=== PATIENT | female | born 1945 | race Caucasian/White ===

== ENCOUNTER 2018-08-14 10:59 | Outpatient (CLI) | payer MEDICARE, MEDICAID ==
[2018-08-14 12:55] LABS: PTT 36.1 SEC (22.9-36.1); Prothrombin Time 13.7 SEC (12.0-14.7)
[2018-08-14 13:02] LABS: #Eosinphils 0.3 thou/uL (0.0-0.7); #Lymphocytes 1.1 thou/uL (1.20-3.40); #Monocytes 0.9 thou/uL (0.11-0.59); #Neutrophils 9.9 thou/uL (1.40-6.50); %Basophils 0.4 % (0.0-1.0); %Eosinophils 2.4 % (0.0-10.0); %Lymphocytes 8.6 % (21.0-51.0); %Neutrophils 81.7 % (42.0-75.0); Hemoglobin 9.8 g/dL (12.0-16.0); MDiff Complete? YES; Mean Corpuscular HGB CONC 29.9 g/dL (32.0-36.0); Mean Corpuscular Hemoglobin 20.8 pg (27.0-31.0); Mean Corpuscular Volume 69.7 fL (78.0-98.0); Mean Platelet Volume 6.2 fL (7.4-10.4); Microcytosis MODERATE=15-30 cells (100X) (0-5/hpf); PLT Morphology Comment Appears Adequate; Platelet Count 269 thou/uL (130-400); Polychromasia SLIGHT = 2-3 cells (100X) (0-2/hpf); RBC Distribution Width 20.4 % (11.5-14.5); White Blood Cell (WBC) Count 12.2 thou/uL (4.8-10.8)
[2018-08-14 13:15] LABS: ALT (SGPT) 12 U/L (8-55); AST (SGOT) 13 U/L (5-34); Albumin 3.7 g/dL (3.4-4.8); Alkaline Phosphatase 116 U/L (40-150); Anion Gap 12 mmol/L (10-20); BUN (Urea Nitrogen) 53 mg/dL (9.8-20.1); Bilirubin, Total 0.4 mg/dL (0.2-1.2); Calc. Creatinine Clearance 0 mL/min (70-130); Calcium 9.9 mg/dL (7.8-10.44); Carbon Dioxide 26 mmol/L (23-31); Chloride 106 mmol/L (98-107); Estimated GFR-MDRD 35; Globulin 3.7 g/dL (2.4-3.5); Glucose 77 mg/dL (80-115); Protein, Total 7.4 g/dL (6.0-8.3); Sodium 139 mmol/L (136-145)
== END 2018-08-14 11:00 | disposition home or self-care (01) ==
LOC: LABBT 10:59
PROVIDERS: ATTEND Family Medicine
CPT/HCPCS: 80053; 85025; 85610; 85730

== ENCOUNTER 2018-08-15 06:03 | Day surgery (SDC) | payer MEDICARE, MEDICAID ==
[2018-08-14 11:22] VITALS: BMI 46.5
[2018-08-15] MEDS ORDERED: Diazepam 5 MG TAB ONE (06:34)
[2018-08-15] MEDS ORDERED: Lidocaine 1% (PF) 30 ML VIAL ONE (07:33)
[2018-08-15] MEDS ORDERED: Heparin 10,000 UNITS/1 ML VIAL ONE (07:33)
[2018-08-15] MEDS ORDERED: Midazolam HCl 2 mg/2 ml Vial ONE (07:34)
[2018-08-15] MEDS ORDERED: Verapamil 5 MG/2 ML VIAL ONE (07:34)
[2018-08-15] MEDS ORDERED: Fentanyl 100 MCG/2 ML VIAL ONE (07:34)
[2018-08-15] MEDS ORDERED: Nitroglycerin 100MG/250ML BOT 250 ML ONE (07:34)
[2018-08-15] MEDS ORDERED: Iopamidol 370 76% 100 ML VIAL ONE (15:11)
== END 2018-08-15 11:27 | disposition home or self-care (01) ==
LOC: CCL 06:03
PROVIDERS: ATTEND Internal Medicine Cardiovascular Disease
PROC: 4A023N7 Measurement of Cardiac Sampling and Pressure, Left Heart, Percutaneous Approach (ICD-10-PCS; principal; 2018-08-15)
PROC: B2111ZZ Fluoroscopy of Multiple Coronary Arteries using Low Osmolar Contrast (ICD-10-PCS; 2018-08-15)
DX: R94.39 Abnormal result of other cardiovascular function study (principal); R06.02 Shortness of breath; E11.9 Type 2 diabetes mellitus without complications; E78.5 Hyperlipidemia, unspecified; D64.9 Anemia, unspecified; I11.0 Hypertensive heart disease with heart failure; I50.32 Chronic diastolic (congestive) heart failure; E78.00 Pure hypercholesterolemia, unspecified; E66.01 Morbid (severe) obesity due to excess calories; Z68.42 Body mass index [BMI] 45.0-49.9, adult; Z79.4 Long term (current) use of insulin; Z79.899 Other long term (current) drug therapy; Z88.5 Allergy status to narcotic agent
CPT/HCPCS: 93458; C1769; C1887; 99152; 99153; J1644; J2001; J2250; J3010

== ENCOUNTER 2018-12-30 10:22 | Outpatient (CLI) | payer MEDICARE, MEDICAID ==
--- NOTE | 2018-12-30 12:05 | ULT ---
BILATERAL RENAL ULTRASOUND: Date: 12/30/18 PROVIDED CLINICAL HISTORY: Chronic kidney disease. FINDINGS: Right kidney measures about 10.2 x 5.6 x 5.7 cm, and demonstrates no evidence for hydronephrosis or m ass. Left kidney measures about 10.5 x 5.6 x 5.4 cm, and demonstrates no evidence for hydronephrosis. Circ umscribed foci of diminished echogenicity are seen involving the superior pole of the left kidney sarahy suring about 1.3 cm and 2.1 cm maximally. These statistically reflect cysts, though are incompletely anechoic, possibly on the basis of technical factors. The urinary bladder appears sonographically unremarkable. IMPRESSION: 1. No evidence for hydronephrosis. 2. Circumscribed foci of diminished echogenicity involving the left kidney, likely reflect cysts, bu t are not definitively characterized on the basis of this study. Consider CT characterization versus sonographic follow-up. POS: [facility]
== END 2018-12-30 10:23 | disposition home or self-care (01) ==
LOC: BICULT 10:22
PROVIDERS: ATTEND Internal Medicine Nephrology
DX: N18.3 Chronic kidney disease, stage 3 (moderate) (principal); R93.422 Abnormal radiologic findings on diagnostic imaging of left kidney
CPT/HCPCS: 76770

== ENCOUNTER 2022-11-27 22:39 | Inpatient (IN) | payer OTHER, MEDICAID ==
[~2022-11-27 22:39] MED LIST: Iopamidol-370 76% 500 ML 1 ML ONE
[2022-11-27] MEDS ORDERED: Aspirin 325 MG TAB ONE (23:49)
[2022-11-27 23:59] LABS: Actual Bicarbonate (HCO3v) 30 mEq/L (22-28); Base Excess 2.2 mEq/L (-2.0 to +3.0); Calcium, Ionized (venous) 1.11 mmol/L (1.16-1.32); Chloride (VBG) 98 mmol/L (98-106); Hemoglobin (Hb) 11.8 g/dL (11.7-16.1); Potassium (VBG) 4.66 mmol/L (3.70-5.30); pH (venous) 7.31 (7.32-7.43)
[2022-11-28 00:44] LABS: CKMB 3.4 ng/mL (0-6.6)
[2022-11-28] MEDS ORDERED: Ipratropium/Albuterol 3 ML NEB NEB PRN (01:20)
[2022-11-28] MEDS ORDERED: Acetaminophen 650 MG Suppository PR PRN (01:21)
[2022-11-28] MEDS ORDERED: Ondansetron PF 4 MG/2 ML Vial IVP PRN (01:21)
[2022-11-28] MEDS ORDERED: Ondansetron ODT 4 MG TAB PO PRN (01:21)
[2022-11-28] MEDS ORDERED: Dextrose 5% in Water 1,000 ML IV PRN (01:26)
[2022-11-28] MEDS ORDERED: Dextrose 50% Abboject 50 ML SYRINGE SLOW IVP PRN (01:26)
[2022-11-28] MEDS ORDERED: Acetaminophen 500 MG TAB ONE (01:36)
[2022-11-28 01:47] LABS: Base Excess (BEa) 2.3 mEq/L (-2.0 to +3.0); CO2 Tension 55.2 mmHg (35.0-45.0); Carboxyhemoglobin (COHb) 0.8 gm% (0.0-3.0); Hemoglobin (Hb) 11.5 g/dL (12.0-16.0); O2 Tension (PaO2), arterial 84.7 mmHg (> 70.0); Potassium - ABG Lab 4.58 mmol/L (3.70-5.30); pH, Arterial 7.34 (7.35-7.45)
[2022-11-28 02:38] LABS: #Lymphocytes 0.7 thou/uL (1.20-3.40); #Monocytes 1.5 thou/uL (0.11-0.59); #Neutrophils 11.4 thou/uL (1.40-6.50); %Basophils 0.1 % (0.0-1.0); %Eosinophils 0.1 % (0.0-10.0); %Monocytes 10.8 % (0.0-10.0); Hemoglobin 10.3 g/dL (12.0-16.0); Mean Corpuscular HGB CONC 30.9 g/dL (32.0-36.0); Mean Corpuscular Volume 77.5 fl (78.0-98.0); Mean Platelet Volume 9.1 fL (7.4-10.4); Platelet Count 224 10x3/uL (130-400); RBC Distribution Width 16.9 % (11.5-14.5); Red Blood Cell (RBC) Count 4.29 mill/uL (4.20-5.40); White Blood Cell (WBC) Count 13.6 10x3/uL (4.8-10.8)
[2022-11-28 03:01] LABS: SARS-CoV-2 NAA Rapid Test Not Detected (NotDetected)
[2022-11-28] MEDS ORDERED: methylPREDNISolone Sod Succ/PF 125 MG/2 ML VIAL IVP SCH (03:09)
[2022-11-28 03:38] LABS: Troponin I 0.489 ng/mL (< 0.028)
[2022-11-28 03:46] VITALS: BMI 44.1
[2022-11-28 04:17] LABS: Anion Gap 19 mmol/L (10-20); BUN (Urea Nitrogen) 37 mg/dL (9.8-20.1); Calc. Creatinine Clearance 60 mL/min (70-130); Calcium 8.8 mg/dL (7.8-10.44); Carbon Dioxide 24 mmol/L (23-31); Chloride 100 mmol/L (98-107); Estimated GFR 34; Glucose 283 mg/dL (83-110); Potassium 4.5 mmol/L (3.5-5.1); Sodium 138 mmol/L (136-145)
[2022-11-28 04:35] LABS: Magnesium 2.3 mg/dL (1.6-2.6)
[2022-11-28] MEDS: Doxycycline 100 MG in Sodium Chloride 0.9% 100 ML IVPB SCH ×2 (04:35→16:39)
[2022-11-28] MEDS: Cefepime 2 GM in Sodium Chloride 0.9% 100 ML IVPB SCH ×2 (05:45→16:39)
[2022-11-28 06:33] LABS: Critical Call Chem Troponin I RESULT DECREASING; Troponin I 0.432 ng/mL (< 0.028)
[2022-11-28] MEDS: Ipratropium/Albuterol 3 ML NEB NEB SCH ×6 (06:55→21:56)
[2022-11-28] MEDS ORDERED: Furosemide 40 MG/4 ML VIAL SLOW IVP SCH (09:00)
[2022-11-28 09:33] LABS: Anion Gap 17 mmol/L (10-20); BUN (Urea Nitrogen) 37 mg/dL (9.8-20.1); Calc. Creatinine Clearance 62 mL/min (70-130); Calcium 9.2 mg/dL (7.8-10.44); Carbon Dioxide 25 mmol/L (23-31); Chloride 102 mmol/L (98-107); Estimated GFR 35; Glucose 231 mg/dL (83-110); Potassium 5.1 mmol/L (3.5-5.1); Sodium 139 mmol/L (136-145)
[2022-11-28] MEDS: Lactated Ringer's 1,000 ML IV SCH ×2 (11:07→23:48)
[2022-11-28] MEDS: HumaLOG 300 UNITS/3 ML VIAL SC PRN ×3 (11:37→21:12)
[2022-11-28] MEDS ORDERED: cefTRIAXone\\ROCEPHIN 1 GM in Sodium Chloride 0.9% 100 ML IVPB SCH (18:00)
[2022-11-28] MEDS: Acetaminophen 325 MG TAB PO PRN (18:08)
[2022-11-29] MEDS: Ipratropium/Albuterol 3 ML NEB NEB SCH ×6 (02:19→21:58)
[2022-11-29] MEDS: Doxycycline 100 MG in Sodium Chloride 0.9% 100 ML IVPB SCH ×2 (03:54→15:48)
[2022-11-29 04:22] LABS: Hemoglobin 9.8 g/dL (12.0-16.0); Mean Corpuscular HGB CONC 30.1 g/dL (32.0-36.0); Mean Corpuscular Hemoglobin 23.4 pg (27.0-31.0); Mean Corpuscular Volume 77.6 fl (78.0-98.0); Platelet Count 177 10x3/uL (130-400); RBC Distribution Width 16.7 % (11.5-14.5); Red Blood Cell (RBC) Count 4.18 mill/uL (4.20-5.40); White Blood Cell (WBC) Count 13.5 10x3/uL (4.8-10.8)
[2022-11-29 04:45] LABS: ALT (SGPT) 15 U/L (8-55); AST (SGOT) 14 U/L (5-34); Alkaline Phosphatase 137 U/L (40-110); Anion Gap 15 mmol/L (10-20); BUN (Urea Nitrogen) 48 mg/dL (9.8-20.1); Bilirubin, Total 0.4 mg/dL (0.2-1.2); Calc. Creatinine Clearance 61 mL/min (70-130); Calcium 8.7 mg/dL (7.8-10.44); Carbon Dioxide 25 mmol/L (23-31); Chloride 96 mmol/L (98-107); Estimated GFR 34; Globulin 3.7 g/dL (2.4-3.5); Glucose 314 mg/dL (83-110); Potassium 4.4 mmol/L (3.5-5.1); Protein, Total 6.7 g/dL (5.8-8.1); Sodium 132 mmol/L (136-145)
[2022-11-29 05:13] LABS: Anisocytosis SLIGHT = 6-15 cells (100X) (0-5/hpf); Band 2 % (5-11); Hypochromia SLIGHT = 6-15 cells (100X) (0-5/hpf); Lymphocytes 6 % (21-51); MDiff Complete? YES; Metamyelocyte 1 % (0-0); Monocytes 4 % (0-10); Neutrophil 87 % (42-75); Platelet Morphology Comment Appears Adequate; Polychromasia SLIGHT = 2-3 cells (100X) (0-2/hpf)
[2022-11-29] MEDS: Cefepime 2 GM in Sodium Chloride 0.9% 100 ML IVPB SCH ×2 (05:38→17:23)
[2022-11-29] MEDS: Saccharomyces boulardii 250 MG CAP PO SCH (08:28)
[2022-11-29] MEDS: methylPREDNISolone Sod Succ 40 MG VIAL IVP SCH (08:28)
[2022-11-29] MEDS: HumaLOG 300 UNITS/3 ML VIAL SC PRN ×3 (11:47→20:36)
[2022-11-29] MEDS: Acetaminophen 325 MG TAB PO PRN ×2 (11:54→21:59)
[2022-11-29] MEDS ORDERED: Furosemide 20 MG/2 ML VIAL SLOW IVP SCH (14:30)
[2022-11-29] MEDS ORDERED: Potassium Chloride 20 MEQ TAB PO SCH (17:00)
[2022-11-30] MEDS: Ipratropium/Albuterol 3 ML NEB NEB SCH ×6 (03:17→22:25)
[2022-11-30 03:48] LABS: #Lymphocytes 1.2 thou/uL (1.20-3.40); #Monocytes 1.1 thou/uL (0.11-0.59); #Neutrophils 12.6 thou/uL (1.40-6.50); %Basophils 0.1 % (0.0-1.0); %Eosinophils 0.1 % (0.0-10.0); %Lymphocytes 7.8 % (21.0-51.0); %Monocytes 7.2 % (0.0-10.0); %Neutrophils 84.7 % (42.0-75.0); Hemoglobin 9.8 g/dL (12.0-16.0); Mean Corpuscular HGB CONC 30.6 g/dL (32.0-36.0); Mean Corpuscular Hemoglobin 23.8 pg (27.0-31.0); Mean Platelet Volume 9.9 fL (7.4-10.4); Platelet Count 214 10x3/uL (130-400); RBC Distribution Width 16.6 % (11.5-14.5); Red Blood Cell (RBC) Count 4.11 mill/uL (4.20-5.40); White Blood Cell (WBC) Count 14.8 10x3/uL (4.8-10.8)
[2022-11-30] MEDS: Doxycycline 100 MG in Sodium Chloride 0.9% 100 ML IVPB SCH (04:03)
[2022-11-30 04:09] LABS: Anion Gap 13 mmol/L (10-20); BUN (Urea Nitrogen) 52 mg/dL (9.8-20.1); Calc. Creatinine Clearance 63 mL/min (70-130); Calcium 8.7 mg/dL (7.8-10.44); Carbon Dioxide 27 mmol/L (23-31); Chloride 98 mmol/L (98-107); Estimated GFR 36; Glucose 304 mg/dL (83-110); Potassium 4.7 mmol/L (3.5-5.1); Sodium 133 mmol/L (136-145)
[2022-11-30] MEDS: HumaLOG 300 UNITS/3 ML VIAL SC PRN ×3 (06:37→21:44)
[2022-11-30] MEDS: Cefepime 2 GM in Sodium Chloride 0.9% 100 ML IVPB SCH (06:43)
[2022-11-30] MEDS: methylPREDNISolone Sod Succ 40 MG VIAL IVP SCH (08:39)
[2022-11-30] MEDS: Multivit, Therapeutic 1 TAB PO SCH (08:39)
[2022-11-30] MEDS: Saccharomyces boulardii 250 MG CAP PO SCH (08:39)
[2022-11-30] MEDS: Cefdinir 300 MG CAP PO SCH (08:43)
[2022-11-30] MEDS: Doxycycline 100 MG CAP PO SCH ×2 (08:43→21:36)
[2022-11-30] MEDS ORDERED: Polyethylene Glycol 3350 17 GM Packet PO PRN (09:53)
[2022-11-30] MEDS ORDERED: Polyethylene Glycol 3350 17 GM Packet PO SCH (11:00)
[2022-11-30] MEDS ORDERED: HumaLOG 300 UNITS/3 ML VIAL SC PRN (12:20)
[2022-11-30] MEDS ORDERED: Insulin Glargine 30 UNITS/0.3 ML VIAL SC SCH (12:30)
[2022-11-30] MEDS: Insulin Glargine 30 UNITS/0.3 ML VIAL SC SCH (21:35)
[2022-11-30] MEDS: Senokot S 8.6-50 MG TAB PO SCH ×2 (21:36→21:38)
[2022-12-01] MEDS: Acetaminophen 325 MG TAB PO PRN ×2 (01:29→23:28)
[2022-12-01 01:31] LABS: #Eosinphils 0.1 thou/uL (0.0-0.7); #Lymphocytes 1.5 thou/uL (1.20-3.40); #Monocytes 1.2 thou/uL (0.11-0.59); #Neutrophils 12.9 thou/uL (1.40-6.50); %Eosinophils 0.4 % (0.0-10.0); %Lymphocytes 9.5 % (21.0-51.0); %Monocytes 7.9 % (0.0-10.0); %Neutrophils 82.2 % (42.0-75.0); Hemoglobin 10.3 g/dL (12.0-16.0); Mean Corpuscular HGB CONC 30.8 g/dL (32.0-36.0); Mean Corpuscular Hemoglobin 23.8 pg (27.0-31.0); Mean Corpuscular Volume 77.1 fl (78.0-98.0); Mean Platelet Volume 9.9 fL (7.4-10.4); Platelet Count 222 10x3/uL (130-400); RBC Distribution Width 16.9 % (11.5-14.5); Red Blood Cell (RBC) Count 4.33 mill/uL (4.20-5.40); White Blood Cell (WBC) Count 15.7 10x3/uL (4.8-10.8)
[2022-12-01] MEDS: Ipratropium/Albuterol 3 ML NEB NEB SCH ×6 (01:46→21:50)
[2022-12-01 02:34] LABS: Calcium 9.1 mg/dL (7.8-10.44); Chloride 102 mmol/L (98-107); Potassium 4.9 mmol/L (3.5-5.1); Sodium 138 mmol/L (136-145)
[2022-12-01 02:35] LABS: Glucose 216 mg/dL (83-110)
[2022-12-01 02:36] LABS: Anion Gap 11 mmol/L (10-20); Carbon Dioxide 30 mmol/L (23-31)
[2022-12-01 02:38] LABS: Calc. Creatinine Clearance 71 mL/min (70-130); Estimated GFR 41
[2022-12-01 02:39] LABS: BUN (Urea Nitrogen) 47 mg/dL (9.8-20.1)
[2022-12-01 02:40] LABS: Magnesium 2.7 mg/dL (1.6-2.6)
[2022-12-01] MEDS ORDERED: Ipratropium/Albuterol 3 ML NEB ONE (03:38)
[2022-12-01 03:58] LABS: Bacteria/HPF None Seen HPF (None Seen); Bilirubin Negative (Negative); Blood, Urine 3+ (Negative); CAUTI Indications for Culture Fever or rigors; Clarity Clear (Clear); Glucose, Urine (Dipstick) Greater than 1000 mg/dL (Negative); Ketone, Urine Negative (Negative); Leukocyte Negative Leu/uL (Negative); Nitrite Negative (Negative); Protein, Urine (Dipstick) 30 mg/dL (Neg-Trace); RBC/HPF Greater than 50 HPF (0-3); Specific Gravity, Urine 1.019 (1.002-1.036); Squamous Epithelial 0-3 HPF (0-3); Urobilinogen Normal mg/dL (Less than 2); pH, Urine 5.5 (5.0-9.0)
[2022-12-01 04:00] LABS: Urine Culture Reflex No No
[2022-12-01] MEDS: Cefdinir 300 MG CAP PO SCH (08:09)
[2022-12-01] MEDS: Insulin Glargine 30 UNITS/0.3 ML VIAL SC SCH ×2 (08:10→20:59)
[2022-12-01] MEDS: Doxycycline 100 MG CAP PO SCH ×2 (08:10→20:59)
[2022-12-01] MEDS: Multivit, Therapeutic 1 TAB PO SCH (08:10)
[2022-12-01] MEDS: predniSONE 20 MG TAB PO SCH (08:10)
[2022-12-01] MEDS: Saccharomyces boulardii 250 MG CAP PO SCH (08:10)
[2022-12-01] MEDS: Senokot S 8.6-50 MG TAB PO SCH ×2 (08:12→21:00)
[2022-12-01 08:15] LABS: Troponin I 0.139 ng/mL (< 0.028)
[2022-12-01] MEDS ORDERED: Insulin Glargine 30 UNITS/0.3 ML VIAL SC SCH (09:00)
[2022-12-01] MEDS: HumaLOG 300 UNITS/3 ML VIAL SC PRN ×3 (12:53→21:05)
[2022-12-02] MEDS: Ipratropium/Albuterol 3 ML NEB NEB SCH ×6 (02:57→22:24)
[2022-12-02] MEDS ORDERED: Ipratropium/Albuterol 3 ML NEB ONE (04:21)
[2022-12-02] MEDS ORDERED: Insulin Glargine 30 UNITS/0.3 ML VIAL SC SCH ×2 (09:00→12:00)
[2022-12-02] MEDS ORDERED: Polyethylene Glycol 3350 17 GM Packet PO SCH (09:15)
[2022-12-02] MEDS: Multivit, Therapeutic 1 TAB PO SCH (09:49)
[2022-12-02] MEDS: Senokot S 8.6-50 MG TAB PO SCH ×2 (09:49→21:42)
[2022-12-02] MEDS: Cefdinir 300 MG CAP PO SCH (09:49)
[2022-12-02] MEDS: Doxycycline 100 MG CAP PO SCH ×2 (09:49→21:41)
[2022-12-02] MEDS: predniSONE 20 MG TAB PO SCH (09:49)
[2022-12-02] MEDS: Saccharomyces boulardii 250 MG CAP PO SCH (09:49)
[2022-12-02] MEDS: Insulin Glargine 30 UNITS/0.3 ML VIAL SC SCH ×2 (11:08→21:42)
[2022-12-02 11:43] LABS: Anion Gap 12 mmol/L (10-20); BUN (Urea Nitrogen) 34 mg/dL (9.8-20.1); Calc. Creatinine Clearance 76 mL/min (70-130); Calcium 9.1 mg/dL (7.8-10.44); Carbon Dioxide 28 mmol/L (23-31); Chloride 99 mmol/L (98-107); Estimated GFR 45; Potassium 4.7 mmol/L (3.5-5.1); Sodium 134 mmol/L (136-145)
[2022-12-02 11:50] LABS: Glucose 426 mg/dL (83-110)
[2022-12-02] MEDS: HumaLOG 300 UNITS/3 ML VIAL SC PRN ×2 (12:56→16:29)
[2022-12-02] MEDS ORDERED: cloNIDine 0.1 MG TAB PO PRN (16:33)
[2022-12-02] MEDS ORDERED: guaiFENesin ER 600 MG TAB PO SCH (16:45)
[2022-12-02] MEDS: guaiFENesin ER 600 MG TAB PO SCH (21:42)
[2022-12-03] MEDS: Ipratropium/Albuterol 3 ML NEB NEB SCH ×6 (01:55→23:01)
[2022-12-03] MEDS: Acetaminophen 325 MG TAB PO PRN (02:11)
[2022-12-03 05:16] LABS: Anion Gap 11 mmol/L (10-20); BUN (Urea Nitrogen) 33 mg/dL (9.8-20.1); Calc. Creatinine Clearance 89 mL/min (70-130); Calcium 8.9 mg/dL (7.8-10.44); Carbon Dioxide 29 mmol/L (23-31); Chloride 99 mmol/L (98-107); Estimated GFR 55; Glucose 203 mg/dL (83-110); Potassium 4.4 mmol/L (3.5-5.1); Sodium 135 mmol/L (136-145)
[2022-12-03] MEDS: HumaLOG 300 UNITS/3 ML VIAL SC PRN ×3 (05:38→17:24)
[2022-12-03 05:46] LABS: Eosinophils 1 % (0-10); Hemoglobin 10.2 g/dL (12.0-16.0); Hypochromia SLIGHT = 6-15 cells (100X) (0-5/hpf); Lymphocytes 23 % (21-51); MDiff Complete? YES; Mean Corpuscular HGB CONC 31.7 g/dL (32.0-36.0); Mean Corpuscular Hemoglobin 24.7 pg (27.0-31.0); Mean Corpuscular Volume 78.1 fl (78.0-98.0); Mean Platelet Volume 8.9 fL (7.4-10.4); Monocytes 3 % (0-10); Neutrophil 72 % (42-75); Platelet Count 224 10x3/uL (130-400); Platelet Morphology Comment Appears Adequate; RBC Distribution Width 17.3 % (11.5-14.5); Reactive Lymphocytes 1 % (0-10); Red Blood Cell (RBC) Count 4.12 mill/uL (4.20-5.40); White Blood Cell (WBC) Count 14.9 10x3/uL (4.8-10.8)
[2022-12-03] MEDS: Multivit, Therapeutic 1 TAB PO SCH (08:53)
[2022-12-03] MEDS: predniSONE 20 MG TAB PO SCH (08:53)
[2022-12-03] MEDS: Cefdinir 300 MG CAP PO SCH (08:53)
[2022-12-03] MEDS: Insulin Glargine 30 UNITS/0.3 ML VIAL SC SCH ×2 (08:54→21:01)
[2022-12-03] MEDS: guaiFENesin ER 600 MG TAB PO SCH ×2 (08:54→21:01)
[2022-12-03] MEDS: Saccharomyces boulardii 250 MG CAP PO SCH (08:54)
[2022-12-03] MEDS: Doxycycline 100 MG CAP PO SCH ×2 (08:54→21:01)
[2022-12-03] MEDS: Senokot S 8.6-50 MG TAB PO SCH ×2 (08:55→21:01)
[2022-12-04] MEDS: Ipratropium/Albuterol 3 ML NEB NEB SCH ×6 (01:56→21:45)
[2022-12-04] MEDS: guaiFENesin ER 600 MG TAB PO SCH ×2 (09:27→20:04)
[2022-12-04] MEDS: Insulin Glargine 30 UNITS/0.3 ML VIAL SC SCH ×2 (09:27→20:04)
[2022-12-04] MEDS: Cefdinir 300 MG CAP PO SCH (09:27)
[2022-12-04] MEDS: Saccharomyces boulardii 250 MG CAP PO SCH (09:27)
[2022-12-04] MEDS: Multivit, Therapeutic 1 TAB PO SCH (09:28)
[2022-12-04] MEDS: Doxycycline 100 MG CAP PO SCH ×2 (09:28→20:04)
[2022-12-04] MEDS: Senokot S 8.6-50 MG TAB PO SCH ×2 (09:28→20:11)
[2022-12-04] MEDS: predniSONE 20 MG TAB PO SCH (09:28)
[2022-12-04] MEDS: HumaLOG 300 UNITS/3 ML VIAL SC PRN ×3 (12:14→20:05)
[2022-12-04] MEDS: Acetaminophen 325 MG TAB PO PRN (20:09)
[2022-12-05] MEDS: Ipratropium/Albuterol 3 ML NEB NEB SCH ×6 (00:53→22:15)
[2022-12-05] MEDS: Acetaminophen 325 MG TAB PO PRN (01:32)
[2022-12-05 05:34] LABS: Anion Gap 12 mmol/L (10-20); BUN (Urea Nitrogen) 29 mg/dL (9.8-20.1); Calc. Creatinine Clearance 91 mL/min (70-130); Calcium 8.9 mg/dL (7.8-10.44); Carbon Dioxide 28 mmol/L (23-31); Chloride 103 mmol/L (98-107); Estimated GFR 59; Glucose 150 mg/dL (83-110); Potassium 4.5 mmol/L (3.5-5.1); Sodium 138 mmol/L (136-145)
[2022-12-05 06:23] LABS: Band 2 % (5-11); Hemoglobin 10.1 g/dL (12.0-16.0); Hypochromia SLIGHT = 6-15 cells (100X) (0-5/hpf); Lymphocytes 32 % (21-51); MDiff Complete? YES; Mean Corpuscular HGB CONC 30.7 g/dL (32.0-36.0); Mean Corpuscular Volume 78.1 fl (78.0-98.0); Mean Platelet Volume 9.7 fL (7.4-10.4); Monocytes 5 % (0-10); Neutrophil 60 % (42-75); Platelet Count 222 10x3/uL (130-400); Platelet Morphology Comment Appears Adequate; RBC Distribution Width 17.3 % (11.5-14.5); Reactive Lymphocytes 1 % (0-10); Red Blood Cell (RBC) Count 4.22 mill/uL (4.20-5.40); White Blood Cell (WBC) Count 13.7 10x3/uL (4.8-10.8)
[2022-12-05] MEDS: Insulin Glargine 30 UNITS/0.3 ML VIAL SC SCH ×2 (09:09→19:43)
[2022-12-05] MEDS: Cefdinir 300 MG CAP PO SCH (09:10)
[2022-12-05] MEDS: Doxycycline 100 MG CAP PO SCH ×2 (09:10→19:43)
[2022-12-05] MEDS: guaiFENesin ER 600 MG TAB PO SCH ×2 (09:10→19:43)
[2022-12-05] MEDS: predniSONE 20 MG TAB PO SCH (09:10)
[2022-12-05] MEDS: Saccharomyces boulardii 250 MG CAP PO SCH (09:10)
[2022-12-05] MEDS: Multivit, Therapeutic 1 TAB PO SCH (09:10)
[2022-12-05] MEDS: Senokot S 8.6-50 MG TAB PO SCH ×2 (09:11→21:42)
[2022-12-05] MEDS: HumaLOG 300 UNITS/3 ML VIAL SC PRN ×2 (18:07→19:47)
[2022-12-06] MEDS: Ipratropium/Albuterol 3 ML NEB NEB SCH ×6 (00:08→23:18)
[2022-12-06] MEDS: Acetaminophen 325 MG TAB PO PRN ×2 (04:55→20:45)
[2022-12-06] MEDS: Doxycycline 100 MG CAP PO SCH (09:55)
[2022-12-06] MEDS: Insulin Glargine 30 UNITS/0.3 ML VIAL SC SCH ×2 (09:55→20:43)
[2022-12-06] MEDS: guaiFENesin ER 600 MG TAB PO SCH ×2 (09:56→20:42)
[2022-12-06] MEDS: Saccharomyces boulardii 250 MG CAP PO SCH (09:56)
[2022-12-06] MEDS: Senokot S 8.6-50 MG TAB PO SCH ×2 (09:56→20:57)
[2022-12-06] MEDS: Cefdinir 300 MG CAP PO SCH (09:56)
[2022-12-06] MEDS: predniSONE 5 MG TAB PO SCH (09:56)
[2022-12-06] MEDS: Multivit, Therapeutic 1 TAB PO SCH (09:57)
[2022-12-06] MEDS: HumaLOG 300 UNITS/3 ML VIAL SC PRN (17:46)
[2022-12-07] MEDS: Ipratropium/Albuterol 3 ML NEB NEB SCH ×5 (03:00→19:06)
[2022-12-07 07:19] LABS: #Eosinphils 0.3 thou/uL (0.0-0.7); #Lymphocytes 1.7 thou/uL (1.20-3.40); #Monocytes 0.8 thou/uL (0.11-0.59); #Neutrophils 9.5 thou/uL (1.40-6.50); %Basophils 0.1 % (0.0-1.0); %Eosinophils 2.3 % (0.0-10.0); %Monocytes 6.6 % (0.0-10.0); Mean Corpuscular HGB CONC 31.1 g/dL (32.0-36.0); Mean Corpuscular Hemoglobin 24.5 pg (27.0-31.0); Mean Corpuscular Volume 78.6 fl (78.0-98.0); Mean Platelet Volume 9.7 fL (7.4-10.4); Platelet Count 212 10x3/uL (130-400); RBC Distribution Width 17.7 % (11.5-14.5); Red Blood Cell (RBC) Count 4.51 mill/uL (4.20-5.40); White Blood Cell (WBC) Count 12.3 10x3/uL (4.8-10.8)
[2022-12-07 07:36] LABS: Anion Gap 13 mmol/L (10-20); BUN (Urea Nitrogen) 29 mg/dL (9.8-20.1); Calc. Creatinine Clearance 82 mL/min (70-130); Calcium 9.7 mg/dL (7.8-10.44); Carbon Dioxide 27 mmol/L (23-31); Chloride 101 mmol/L (98-107); Estimated GFR 52; Glucose 87 mg/dL (83-110); Sodium 136 mmol/L (136-145)
[2022-12-07] MEDS: Senokot S 8.6-50 MG TAB PO SCH (08:35)
[2022-12-07] MEDS: Multivit, Therapeutic 1 TAB PO SCH (08:36)
[2022-12-07] MEDS: predniSONE 5 MG TAB PO SCH (08:36)
[2022-12-07] MEDS: guaiFENesin ER 600 MG TAB PO SCH (08:36)
[2022-12-07] MEDS: Saccharomyces boulardii 250 MG CAP PO SCH (08:36)
[2022-12-07] MEDS: Insulin Glargine 30 UNITS/0.3 ML VIAL SC SCH (08:36)
[2022-12-07] MEDS: HumaLOG 300 UNITS/3 ML VIAL SC PRN ×2 (13:35→16:55)
[2022-12-07 16:51] VITALS: BP 156/61; TEMP 98.2
== END 2022-12-07 19:02 | disposition home or self-care (01) | DRG 871 ==
LOC: ERS 22:39 → IMCU/EMU 11-28 01:28 → 2NO 12-01 19:30 → T4-B 12-06 19:41
PROVIDERS: ADMIT Student in an Organized Health Care Education/Training Program; ATTEND Internal Medicine
PROC: 5A09357 Assistance with Respiratory Ventilation, Less than 24 Consecutive Hours, Continuous Positive Airway Pressure (ICD-10-PCS; principal; 2022-11-28)
PROC: 3E03329 Introduction of Other Anti-infective into Peripheral Vein, Percutaneous Approach (ICD-10-PCS; 2022-11-28)
DX: A41.9 Sepsis, unspecified organism (principal); I21.A1 Myocardial infarction type 2; J96.01 Acute respiratory failure with hypoxia; J18.9 Pneumonia, unspecified organism; J96.02 Acute respiratory failure with hypercapnia; I50.33 Acute on chronic diastolic (congestive) heart failure; I13.0 Hypertensive heart and chronic kidney disease with heart failure and stage 1 through stage 4 chronic kidney disease, or unspecified chronic kidney disease; Z68.41 Body mass index [BMI] 40.0-44.9, adult; I47.20 Ventricular tachycardia, unspecified; G93.40 Encephalopathy, unspecified; R65.20 Severe sepsis without septic shock; E11.22 Type 2 diabetes mellitus with diabetic chronic kidney disease; E78.5 Hyperlipidemia, unspecified; Z20.822 Contact with and (suspected) exposure to COVID-19; I44.0 Atrioventricular block, first degree; N18.30 Chronic kidney disease, stage 3 unspecified; E66.01 Morbid (severe) obesity due to excess calories; D63.1 Anemia in chronic kidney disease; Z79.899 Other long term (current) drug therapy; Z88.5 Allergy status to narcotic agent; Z79.4 Long term (current) use of insulin
CPT/HCPCS: 36415; 36416; 71046; 71275; 80048; 80053; 81001; 82553; 82728; 82805; 83036; 83605; 83735; 83880; 84484; 85025; 87040; 87077; 87149; 87186; 87811; 93005; 93010; 93306; 94660; J0692; J1650; J1815; J1940; J2920; J2930; J3490; J7120; J7512; J7620; Q9967